=== PATIENT | male | born 1970 | race Two or more races ===

== ENCOUNTER 2017-03-07 20:16 | Emergency (ER) | payer SELFPAY ==
[~2017-03-07] VITALS: Ht 167.6 cm; Wt 68.9 kg
[~2017-03-07 20:16] MED LIST: CEPH500C PO; INDO50CA PO
[2017-03-07 20:33] VITALS: BP 141/80
[2017-03-07] MEDS ORDERED: DOXY100C2 PO (20:57)
--- NOTE | 2017-03-07 20:58 | PHYS DOC ---
Past Medical History Past Medical History: No Pertinent History Past Surgical History: No Surgical History Alcohol Use: Occasionally Drug Use: None Adult General Chief Complaint Chief Complaint: INSECT BITE HPI HPI Patient is a 46 year old [f__sex] who presents with [] Review of Systems Review of Systems Constitutional: Denies fever or chills [] Eyes: Denies change in visual acuity, redness, or eye pain [] HENT: Denies nasal congestion or sore throat [] Respiratory: Denies cough or shortness of breath [] Cardiovascular: No additional information not addressed in HPI [] GI: Denies abdominal pain, nausea, vomiting, bloody stools or diarrhea [] : Denies dysuria or hematuria [] Musculoskeletal: Denies back pain or joint pain [] Integument: Denies rash or skin lesions [] Neurologic: Denies headache, focal weakness or sensory changes [] Endocrine: Denies polyuria or polydipsia [] Allergies Allergies Allergies Coded Allergies Type Severity Reaction Last Updated Verified No Known Drug Allergies 05/18/15 No Physical Exam Physical Exam Physical exam unremarkable except as documented Skin: Right flank, partially embedded tick. There is no surrounding erythema. There is nontender Lymph system: no adenopathy on exam Current Patient Data Vital Signs Vital Signs Date Time Temp Pulse Resp B/P (MAP) Pulse Ox O2 Delivery O2 Flow Rate FiO2 03/07/17 20:33 98.1 77 18 97 Room Air 98.1 EKG EKG [] Radiology/Procedures Radiology/Procedures [] Course & Med Decision Making Course & Med Decision Making Procedure: There are concern cleansed with alcohol, forceps used to remove the remaining tick body. Patient tolerated procedure well. Wound dressed with a Band -Aid. Pertinent Labs and Imaging studies reviewed. (See chart for details) [] Dragon Disclaimer Dragon Disclaimer This electronic medical record was generated, in whole or in part, using a voice recognition dictation system. Departure Departure Impression: Primary Impression: Insect bite Disposition: 01 HOME, SELF-CARE Condition: STABLE Referrals: NO PCP (PCP) Patient Instructions: Wood Tick Bite, [id number] Scripts Doxycycline Hyclate (DOXYCYCLINE HYCLATE) 100 Mg Capsule 1 CAP PO BID for 10 Days, #20 CAP Prov: CISCO EVANS APRN 03/07/17 CISCO EVANS APRN March 07, 2017 20:57
== END 2017-03-07 21:05 | disposition home or self-care (01) ==
LOC: ER 20:16
DX: S30.861A Insect bite (nonvenomous) of abdominal wall, initial encounter (principal); W57.XXXA Bitten or stung by nonvenomous insect and other nonvenomous arthropods, initial encounter; Y93.89 Activity, other specified; Y99.8 Other external cause status; Y92.89 Other specified places as the place of occurrence of the external cause
CPT/HCPCS: 10120; 99284-25

== ENCOUNTER 2018-11-02 15:51 | Emergency (ER) | payer SELFPAY ==
[~2018-11-02] VITALS: Ht 167.6 cm; Wt 60.8 kg
[~2018-11-02 15:51] MED LIST changes: +DOXY100C2 PO; -INDO50CA PO; +INDO50CA5 PO
[2018-11-02 16:00] VITALS: BP 125/76
[2018-11-02] MEDS ORDERED: SULF1TAB24 PO (16:31)
[2018-11-02] MEDS ORDERED: CEPH-263 PO (16:31)
--- NOTE | 2018-11-02 16:31 | PHYS DOC ---
Past Medical History Past Medical History: No Pertinent History Past Surgical History: No Surgical History Alcohol Use: Occasionally Drug Use: None Adult General Chief Complaint Chief Complaint: LOWER EXT PAIN HPI HPI 40-year-old male otherwise healthy presenting to the emergency room with a rash on his right lower leg. His been present for a few weeks. There is mildly painful. The pain is nonradiating intermittent and without alleviating factors. He denies any other symptoms. Review of systems is negative for chest pain shortness of breath fevers or chills. All other review of systems is negative unless otherwise noted in history of present illness. ED course: 40-year-old male presenting with cellulitis. We will initiate the patient on oral Keflex and Bactrim. Follow up with PCP 1-2 days.The patient has been examined and was not found to have an emergency medical condition. The patient was then discharged home in stable condition to follow up with their primary care physician over the next 1-2 days. They were to return if their symptoms worsened or if they were concerned for any reason. They were also instructed to return to the emergency department if they were unable to get the recommended and appropriate follow-up. [id number] discharge instructions and return precautions were given. Patient's questions were answered to their satisfaction. Patient is comfortable with plan. Review of Systems Review of Systems SEE ABOVE. Allergies Allergies Allergies Coded Allergies Type Severity Reaction Last Updated Verified No Known Drug Allergies 05/18/15 No Physical Exam Physical Exam SEE ABOVE Constitutional: Well developed, well nourished, no acute distress, non-toxic appearance. HENT: Normocephalic, atraumatic, bilateral external ears normal, oropharynx moist, no oral exudates, nose normal. [] Eyes: PERRLA, EOMI, conjunctiva normal, no discharge. Neck: Normal range of motion, no tenderness, supple, no stridor. [] Cardiovascular:Heart rate regular rhythm, no murmur Lungs & Thorax: Bilateral breath sounds clear to auscultation [] Abdomen: Bowel sounds normal, soft, no tenderness, no masses, no pulsatile masses. Skin: Warm, dry, . The patient has erythema on the lateral aspect of the leg approximately 4 cm in diameter. There is mild swelling but I do not feel any fluctuance to suggest an abscess. Back: No tenderness, no CVA tenderness. Extremities: No tenderness, no cyanosis, no clubbing, ROM intact, no edema. [] Neurologic: Alert and oriented X 3, normal motor function, normal sensory function, no focal deficits noted. Psychologic: Affect normal, judgement normal, mood normal. [] Current Patient Data Vital Signs Vital Signs Date Time Temp Pulse Resp B/P (MAP) Pulse Ox O2 Delivery O2 Flow Rate FiO2 11/02/18 16:00 98.0 75 16 125/76 (92) 99 Room Air 98.0 EKG EKG [] Radiology/Procedures Radiology/Procedures [] Course & Med Decision Making Course & Med Decision Making Pertinent Labs and Imaging studies reviewed. (See chart for details) [] Dragon Disclaimer Dragon Disclaimer This electronic medical record was generated, in whole or in part, using a voice recognition dictation system. Departure Departure Impression: Primary Impression: Cellulitis of right leg Disposition: HOME, SELF-CARE Condition: STABLE Referrals: NO PCP (PCP) Patient Instructions: Cellulitis Additional Instructions: Thank you for allowing us to participate in your care today. Return to the emergency department you have any new or worsening symptoms, or if you are concerned for any reason. Return to emergency department if you have any new or concerning symptoms including but not limited to fever, chills, nausea, vomiting, intractable pain, any new rashes, chest pain, shortness of air , uncontrolled bleeding, difficulty breathing, and/or vision loss. Follow up with your primary care physician within 1-2 days. Call your Primary Doctor tomorrow and inform them of your visit today. If you do not have a primary care provider we are happy to provide you with a list of our primary care providers contact information. This condition should be evaluated by your primary care physician and any recommended consulting services for continued management within 2 days after discharge. If at any time, you are having difficulty getting into your primary care doctor or a specialist, return to the emergency department. Scripts Cephalexin (KEFLEX) 250 Mg Capsule 1 CAP PO QID, #28 CAP Prov: BOLIVAR HOBBS MD 11/02/18 Sulfamethoxazole/Trimethoprim (BACTRIM DS TABLET) 1 Each Tablet 1 TAB PO BID, #14 TAB Prov: BOLIVAR HOBBS MD 11/02/18 BOLIVAR HOBBS MD Nov 02, 2018 16:31
== END 2018-11-02 17:11 | disposition home or self-care (01) ==
LOC: ER 15:51
DX: L03.115 Cellulitis of right lower limb (principal)
CPT/HCPCS: 99283

== ENCOUNTER 2019-03-05 17:08 | Emergency (ER) | payer SELFPAY ==
[~2019-03-05] VITALS: Ht 167.6 cm; Wt 68.9 kg
[~2019-03-05 17:08] MED LIST changes: +CEPH-263 PO; +SULF1TAB24 PO
[2019-03-05 18:36] LABS: BILIRUBIN,URINE NEGATIVE (NEG); CLARITY,URINE CLEAR; COLOR,URINE YELLOW; NITRITE,URINE NEGATIVE (NEG); PH,URINE 5.5; PROTEIN,URINE NEGATIVE (NEG-TRACE)
--- NOTE | 2019-03-05 18:38 | PHYS DOC ---
Past Medical History Past Medical History: No Pertinent History (NYDIA SYLVESTER APRN) Past Surgical History: No Surgical History (NYDIA SYLVESTER APRN) Alcohol Use: Occasionally Drug Use: None (NYDIA SYLVESTER APRN) Adult General Chief Complaint Chief Complaint: HEADACHE HPI HPI Patient is a 48 year old male who presents with multiple complaints. Patient states that he was running a fever on Monday fever stopped on Monday. Has been having a diffuse headache localized to the L eye. Has also been having bilateral flank pain for several days. Also states that he has been having a burning chest pain. Rates his pain 10/10 and throbbing. Has not tried treatment at home. (NYDIA SYLVESTER APRN) Review of Systems Review of Systems Constitutional: Denies fever or chills [] Eyes: Denies change in visual acuity, redness, or eye pain [] HENT: Denies nasal congestion or sore throat [] Respiratory: Denies cough or shortness of breath [] Cardiovascular: Reports intermittent chest burning, denies palpations or syncope. GI: Reports bilateral flank pain, Denies nausea, vomiting, bloody stools or diarrhea [] : Denies dysuria or hematuria [] Musculoskeletal: Reports bilateral flank pain but denies joint pain [] Integument: Denies rash or skin lesions [] Neurologic: Reports headache denies focal weakness or sensory changes [] Endocrine: Denies polyuria or polydipsia [] Complete systems were reviewed and found to be within normal limits, except as documented in this note. (NYDIA SYLVESTER APRN) Current Medications Current Medications Current Medications Medications (Trade) Dose Ordered Sig/Antonio Start Time Stop Time Status Last Admin Dose Admin Diphenhydramine HCl (Benadryl) 25 mg 1X ONCE 03/05/19 19:00 03/05/19 19:01 DC 03/05/19 19:02 25 MG Ketorolac Tromethamine (Toradol 15mg Vial) 15 mg 1X ONCE 03/05/19 19:00 03/05/19 19:01 DC 03/05/19 19:02 15 MG Prochlorperazine Edisylate (Compazine) 10 mg 1X ONCE 03/05/19 19:00 03/05/19 19:01 DC 03/05/19 19:03 10 MG Sodium Chloride 1,000 ml @ 1,000 mls/hr Q1H 5/14/19 19:00 03/05/19 19:59 DC 03/05/19 19:02 1,000 MLS/HR (LOS BANUELOS MD) Allergies Allergies Allergies Coded Allergies Type Severity Reaction Last Updated Verified No Known Drug Allergies 05/18/15 No (LOS BANUELOS MD) Physical Exam Physical Exam Constitutional: Well developed, well nourished, no acute distress, non-toxic appearance. [] HENT: Normocephalic, atraumatic, bilateral external ears normal, oropharynx moist, no oral exudates, nose normal. [] Eyes: PERRLA, EOMI, conjunctiva normal, no discharge. [] Neck: Normal range of motion, no tenderness, supple, no stridor. [] Cardiovascular:Heart rate regular rhythm, no murmur [] Lungs & Thorax: Bilateral breath sounds clear to auscultation [] Abdomen: normal bowel sounds, soft, no tenderness, no masses, no pulsatile masses. [] Skin: Warm, dry, no erythema, no rash. [] Back: mild bilateral flank tenderness, no CVA tenderness. [] Extremities: No tenderness, no cyanosis, no clubbing, ROM intact, no edema. [] Neurologic: Alert and oriented X 3, normal motor function, normal sensory function, no focal deficits noted. [] Psychologic: Affect normal, judgement normal, mood normal. [] (NYDIA SYLVESTER APRN) Current Patient Data Vital Signs Vital Signs Date Time Temp Pulse Resp B/P (MAP) Pulse Ox O2 Delivery O2 Flow Rate FiO2 03/05/19 19:53 62 97 03/05/19 18:08 98.4 18 144/90 (108) Room Air 98.4 (LOS BANUELOS MD) Lab Values Laboratory Tests Test 03/05/19 18:10 03/05/19 18:40 Urine Collection Type Void Urine Color Yellow Urine Clarity Clear Urine pH 5.5 Urine Specific [place] 1.020 Urine Protein Negative mg/dL (NEG-TRACE) Urine Glucose (UA) Negative mg/dL (NEG) Urine Ketones (Stick) Negative mg/dL (NEG) Urine Blood Large (NEG) Urine Nitrite Negative (NEG) Urine Bilirubin Negative (NEG) Urine Urobilinogen Dipstick 1.0 mg/dL (0.2 mg/dL) Urine Leukocyte Esterase Negative (NEG) Urine RBC 3-5 /HPF (0-2) Urine WBC Rare /HPF (0-4) Urine Squamous Epithelial Cells Few /LPF Urine Bacteria 0 /HPF (0-FEW) Urine Mucus Marked /LPF Urine Opiates Screen Neg (NEG) Urine Methadone Screen Neg (NEG) Urine Barbiturates Neg (NEG) Urine Phencyclidine Screen Neg (NEG) Urine Amphetamine/Methamphetamine Neg (NEG) Urine Benzodiazepines Screen Neg (NEG) Urine Cocaine Screen Neg (NEG) Urine Cannabinoids Screen Neg (NEG) Urine Ethyl Alcohol Neg (NEG) White Blood Count 5.1 x10^3/uL (4.0-11.0) Red Blood Count 5.01 x10^6/uL (4.30-5.70) Hemoglobin 14.9 g/dL (13.0-17.5) Hematocrit 42.4 % (39.0-53.0) Mean Corpuscular Volume 85 fL (79-100) Mean Corpuscular Hemoglobin 30 pg (25-35) Mean Corpuscular Hemoglobin Concent 35 g/dL (31-37) Red Cell Distribution Width 13.4 % (11.5-14.5) Platelet Count 198 x10^3/uL (140-400) Neutrophils (%) (Auto) 39 % (31-73) Lymphocytes (%) (Auto) 39 % (24-48) Monocytes (%) (Auto) 10 % (0-9) H Eosinophils (%) (Auto) 10 % (0-3) H Basophils (%) (Auto) 3 % (0-3) Neutrophils # (Auto) 2.0 x10^3uL (1.8-7.7) Lymphocytes # (Auto) 2.0 x10^3/uL (1.0-4.8) Monocytes # (Auto) 0.5 x10^3/uL (0.0-1.1) Eosinophils # (Auto) 0.5 x10^3/uL (0.0-0.7) Basophils # (Auto) 0.1 x10^3/uL (0.0-0.2) Sodium Level 138 mmol/L (136-145) Potassium Level 3.6 mmol/L (3.5-5.1) Chloride Level 101 mmol/L (98-107) Carbon Dioxide Level 25 mmol/L (21-32) Anion Gap 12 (6-14) Blood Urea Nitrogen 13 mg/dL (8-26) Creatinine 0.8 mg/dL (0.7-1.3) Estimated GFR (Cockcroft-Gault) 103.2 BUN/Creatinine Ratio 16 (6-20) Glucose Level 152 mg/dL (70-99) H Calcium Level 8.8 mg/dL (8.5-10.1) Total Bilirubin 0.6 mg/dL (0.2-1.0) Aspartate Amino Transferase (AST) 27 U/L (15-37) Alanine Aminotransferase (ALT) 53 U/L (16-63) Alkaline Phosphatase 91 U/L (46-116) Troponin I Quantitative < 0.017 ng/mL (0.000-0.055) Total Protein 7.1 g/dL (6.4-8.2) Albumin 3.7 g/dL (3.4-5.0) Albumin/Globulin Ratio 1.1 (1.0-1.7) Lipase 138 U/L (73-393) Laboratory Tests 03/05/19 18:40 Laboratory Tests 03/05/19 18:40 (LOS BANUELOS MD) Lab Values Laboratory Tests Test 03/05/19 18:10 03/05/19 18:40 Urine Collection Type Void Urine Color Yellow Urine Clarity Clear Urine pH 5.5 Urine Specific [place] 1.020 Urine Protein Negative mg/dL (NEG-TRACE) Urine Glucose (UA) Negative mg/dL (NEG) Urine Ketones (Stick) Negative mg/dL (NEG) Urine Blood Large (NEG) Urine Nitrite Negative (NEG) Urine Bilirubin Negative (NEG) Urine Urobilinogen Dipstick 1.0 mg/dL (0.2 mg/dL) Urine Leukocyte Esterase Negative (NEG) Urine RBC 3-5 /HPF (0-2) Urine WBC Rare /HPF (0-4) Urine Squamous Epithelial Cells Few /LPF Urine Bacteria 0 /HPF (0-FEW) Urine Mucus Marked /LPF Urine Opiates Screen Neg (NEG) Urine Methadone Screen Neg (NEG) Urine Barbiturates Neg (NEG) Urine Phencyclidine Screen Neg (NEG) Urine Amphetamine/Methamphetamine Neg (NEG) Urine Benzodiazepines Screen Neg (NEG) Urine Cocaine Screen Neg (NEG) Urine Cannabinoids Screen Neg (NEG) Urine Ethyl Alcohol Neg (NEG) White Blood Count 5.1 x10^3/uL (4.0-11.0) Red Blood Count 5.01 x10^6/uL (4.30-5.70) Hemoglobin 14.9 g/dL (13.0-17.5) Hematocrit 42.4 % (39.0-53.0) Mean Corpuscular Volume 85 fL (79-100) Mean Corpuscular Hemoglobin 30 pg (25-35) Mean Corpuscular Hemoglobin Concent 35 g/dL (31-37) Red Cell Distribution Width 13.4 % (11.5-14.5) Platelet Count 198 x10^3/uL (140-400) Neutrophils (%) (Auto) 39 % (31-73) Lymphocytes (%) (Auto) 39 % (24-48) Monocytes (%) (Auto) 10 % (0-9) H Eosinophils (%) (Auto) 10 % (0-3) H Basophils (%) (Auto) 3 % (0-3) Neutrophils # (Auto) 2.0 x10^3uL (1.8-7.7) Lymphocytes # (Auto) 2.0 x10^3/uL (1.0-4.8) Monocytes # (Auto) 0.5 x10^3/uL (0.0-1.1) Eosinophils # (Auto) 0.5 x10^3/uL (0.0-0.7) Basophils # (Auto) 0.1 x10^3/uL (0.0-0.2) Sodium Level 138 mmol/L (136-145) Potassium Level 3.6 mmol/L (3.5-5.1) Chloride Level 101 mmol/L (98-107) Carbon Dioxide Level 25 mmol/L (21-32) Anion Gap 12 (6-14) Blood Urea Nitrogen 13 mg/dL (8-26) Creatinine 0.8 mg/dL (0.7-1.3) Estimated GFR (Cockcroft-Gault) 103.2 BUN/Creatinine Ratio 16 (6-20) Glucose Level 152 mg/dL (70-99) H Calcium Level 8.8 mg/dL (8.5-10.1) Total Bilirubin 0.6 mg/dL (0.2-1.0) Aspartate Amino Transferase (AST) 27 U/L (15-37) Alanine Aminotransferase (ALT) 53 U/L (16-63) Alkaline Phosphatase 91 U/L (46-116) Troponin I Quantitative < 0.017 ng/mL (0.000-0.055) Total Protein 7.1 g/dL (6.4-8.2) Albumin 3.7 g/dL (3.4-5.0) Albumin/Globulin Ratio 1.1 (1.0-1.7) Lipase 138 U/L (73-393) Laboratory Tests 03/05/19 18:40 Laboratory Tests 03/05/19 18:40 (NYDIA SYLVESTER APRN) EKG EKG [] (NYDIA SYLVESTER APRN) Radiology/Procedures Radiology/Procedures []PATIENT: MICHAEL ANGUIANOCOUNT: [id number]#: [id number] : 1970 LOCATION: ER AGE: 48 SEX: M EXAM STATUS: REG ER ORD. PHYSICIAN: NYDAI SYLVESTER APRN REASON: r/o kidney stone, BILATERAL FLANK PAIN PROCEDURE: CT ABDOMEN PELVIS WO CONTRAST CT scan abdomen and pelvis without contrast 03/05/2019 CLINICAL HISTORY: Bilateral flank pain. TECHNIQUE: Unenhanced, contiguous, 2 mm axial sections were obtained through abdomen and pelvis. One or more of the following individualized dose reduction techniques were utilized for this study: 1. Automated exposure control. 2. Adjustment of the mA and/or kV according to patient size. 3. Use of iterative reconstruction technique. FINDINGS: Images through the lung bases are within normal limits. The liver parenchyma has a decreased attenuation consistent with fatty infiltration. The spleen, pancreas, and adrenal glands are within normal limits. No renal or ureteral calculus is seen. 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 The abdominal aorta tapers normally. The gallbladder is slightly contracted. No free fluid or free air is within the abdomen. There is no evidence of bowel obstruction. The appendix is well-visualized and is within normal limits. Images through the pelvis demonstrate the urinary bladder distended with urine. No free fluid is seen. No distal ureteral calculus is noted. Minimal S-shaped curvature of the thoracolumbar spine is seen. Mild degenerative changes are seen involving the lower thoracic and mid and lower lumbar spine. IMPRESSION: No acute abnormality is seen. Electronically signed by: Reji Townsend MD (03/05/2019 7:27 PM) [facility] Chest X-ray interpreted by Dr. Banuelos No acute abnormalities (NYDIA SYLVESTER APRN) Course & Med Decision Making Course & Med Decision Making Pertinent Labs and Imaging studies reviewed. (See chart for details) Will give headache medication, work up for kidney stone, and do a chest pain workup. Patient is agreeable. Headache has improved with medication. CT scan and Chest x-ray were negative. Labs were unremarkable. (NYDIA SYLVESTER APRN) Course & Med Decision Making Staff Physician Addendum: I was working in the ER during the course of this patient's visit. I was available for consultation as needed, but I was not directly involved in the care of this patient. (LOS BANUELOS MD) Dragon Disclaimer Dragon Disclaimer This electronic medical record was generated, in whole or in part, using a voice recognition dictation system. (NYDIA SYLVESTER APRN) Departure Departure Impression: Primary Impression: Headache Additional Impression: Flank pain Disposition: HOME, SELF-CARE Condition: STABLE Referrals: NO PCP (PCP) Patient Instructions: General Headache Without Cause Additional Instructions: If symptoms worsen come back to ER. Follow up with a primary care doctor in regard to these complaints for further workup and followup. Problem Qualifiers Primary Impression: Headache Headache type: unspecified Headache chronicity pattern: unspecified pattern Intractability: intractable Qualified Codes: R51 - Headache NYDIA SYLVESTER APRN March 05, 2019 18:38 LOS BANUELOS MD March 11, 2019 06:20
[2019-03-05 18:41] LABS: BARBITURATES NEG (NEG); BENZODIAZEPINES NEG (NEG); CANNABINOIDS NEG (NEG); COCAINE NEG (NEG); METHADONE NEG (NEG); OPIATES NEG (NEG); PHENCYCLIDINE NEG (NEG)
[2019-03-05 18:45] LABS: AMPHETAMINE/METHAMPHETAMINE NEG (NEG)
[2019-03-05 18:50] LABS: BASO # 0.1 x10^3/uL (0.0-0.2); BASO % 3 % (0-3); EOS # 0.5 x10^3/uL (0.0-0.7); EOS % 10 % (0-3); HEMATOCRIT 42.4 % (39.0-53.0); HEMOGLOBIN 14.9 g/dL (13.0-17.5); LYMPH % 39 % (24-48); MEAN CORPUSCULAR HEMOGLOBIN 30 pg (25-35); MEAN CORPUSCULAR HGB CONC 35 g/dL (31-37); MEAN CORPUSCULAR VOLUME 85 fL (79-100); MONO # 0.5 x10^3/uL (0.0-1.1); MONO % 10 % (0-9); NEUT % 39 % (31-73); PLATELET COUNT 198 x10^3/uL (140-400); RED BLOOD COUNT 5.01 x10^6/uL (4.30-5.70); RED CELL DISTRIBUTION WIDTH 13.4 % (11.5-14.5); WHITE BLOOD COUNT 5.1 x10^3/uL (4.0-11.0)
[2019-03-05 18:53] LABS: BACTERIA,URINE 0 /HPF (0-FEW); SQUAMOUS EPITHELIAL CELL,UR FEW /LPF; WBC,URINE RARE /HPF (0-4)
[2019-03-05 18:57] LABS: CALCIUM 8.8 mg/dL (8.5-10.1); CREATININE 0.8 mg/dL (0.7-1.3); GFR 103.2; POTASSIUM 3.6 mmol/L (3.5-5.1)
[2019-03-05] MEDS ORDERED: IV NORMAL SALINE 1000ML BAG 1,000 ML IV SCH (19:00)
[2019-03-05] MEDS ORDERED: KETOROLAC 15 MG/ML VIAL. IV ONE (19:00)
[2019-03-05] MEDS ORDERED: PROCHLORPERAZINE 10 MG/2 ML VIAL. IV ONE (19:00)
[2019-03-05] MEDS ORDERED: diphenhydrAMINE 50 MG/ML VIAL IVP ONE (19:00)
[2019-03-05 19:03] LABS: ALBUMIN 3.7 g/dL (3.4-5.0); ALBUMIN/GLOBULIN RATIO 1.1 (1.0-1.7); TOTAL BILIRUBIN 0.6 mg/dL (0.2-1.0); TOTAL PROTEIN 7.1 g/dL (6.4-8.2)
--- NOTE | 2019-03-05 19:31 | RAD ---
CT scan abdomen and pelvis without contrast 03/05/2019 CLINICAL HISTORY: Bilateral flank pain. TECHNIQUE: Unenhanced, contiguous, 2 mm axial sections were obtained through abdomen and pelvis. One or more of the following individualized dose reduction techniques were utilized for this study: 1. Automated exposure control. 2. Adjustment of the mA and/or kV according to patient size. 3. Use of iterative reconstruction technique. FINDINGS: Images through the lung bases are within normal limits. The liver parenchyma has a decreased attenuation consistent with fatty infiltration. The spleen, pancreas, and adrenal glands are within normal limits. No renal or ureteral calculus is seen. 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 The abdominal aorta tapers normally. The gallbladder is slightly contracted. No free fluid or free air is within the abdomen. There is no evidence of bowel obstruction. The appendix is well-visualized and is within normal limits. Images through the pelvis demonstrate the urinary bladder distended with urine. No free fluid is seen. No distal ureteral calculus is noted. Minimal S-shaped curvature of the thoracolumbar spine is seen. Mild degenerative changes are seen involving the lower thoracic and mid and lower lumbar spine. IMPRESSION: No acute abnormality is seen. Electronically signed by: Reji Townsend MD (03/05/2019 7:27 PM) [facility]
[2019-03-05 19:53] VITALS: BP 129/75
--- NOTE | 2019-03-06 00:03 | RAD ---
CHEST PA LATERAL History: Chest pain today. Comparison: None. Findings: The cardiomediastinal silhouette is normal. Pulmonary vasculature is normal. The lungs are clear. No pleural effusion or pneumothorax is seen. There is no acute bone abnormality. IMPRESSION: No acute cardiopulmonary process. Electronically signed by: Julio Cesar Gardiner MD (03/06/2019 12:00 AM) [id number]
--- NOTE | 2019-03-06 06:30 | EKG ---
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
== END 2019-03-05 20:07 | disposition home or self-care (01) ==
LOC: ER 17:08
DX: R51 Headache (principal); R10.9 Unspecified abdominal pain; R50.9 Fever, unspecified
CPT/HCPCS: 36415; 71046; 74176; 80053; 80307; 81001; 83690; 84484; 85025; 93005; 99285; J0780; J1200; J1885; J7030

== ENCOUNTER 2019-04-12 12:32 | Emergency (ER) | payer SELFPAY ==
[~2019-04-12] VITALS: Ht 167.6 cm; Wt 59.9 kg
[2019-04-12] MEDS ORDERED: IV NORMAL SALINE 1000ML BAG 1,000 ML IV SCH (12:58)
[2019-04-12] MEDS ORDERED: fentaNYL PF VIAL 100 MCG/2 ML VIAL IV PRN (13:00)
--- NOTE | 2019-04-12 13:01 | PHYS DOC ---
Past Medical History Past Medical History: No Pertinent History Past Surgical History: No Surgical History Alcohol Use: Occasionally Drug Use: None Adult General Chief Complaint Chief Complaint: FLANK PAIN HPI HPI 48-year-old male presenting the emergency department today with left flank pain that started 2-3 days. He reports sharp shooting pain in his lower left side that radiates around. It is worse when he lifts and when he moves. ros: He denies any abdominal pain. He denies hematuria polyuria dysuria or fevers. All other review of systems is negative. ED course: 48-year-old male presenting with left-sided flank pain. He is given IV fluids nausea and pain medication here in the emergency department. Blood w ork and urinalysis along with CT ordered. Blood work is unremarkable. Urinalysis shows moderate blood in the urine analysis. No signs of infection. CT shows no signs of kidney stone or acute pathology on noncontrast CT. Patient is feeling better on reexamination. We will discharge her to follow-up with his doctor in 1-2 days.The patient has been examined and was not found to have an emergency medical condition. The patient was then discharged home in stable condition to follow up with their primary care physician over the next 1-2 days. They were to return if their symptoms worsened or if they were concerned for any reason. They were also instructed to return to the emergency department if they were unable to get the recommended and appropriate follow-up. [id number] discharge instructions and return precautions were given. Patient's questions were answered to their satisfaction. Patient is comfortable with plan. Current Medications Current Medications Current Medications Medications (Trade) Dose Ordered Sig/[facility] Start Time Stop Time Status Last Admin Dose Admin Fentanyl Citrate (Fentanyl 2ml Vial) 50 mcg PRN Q30MIN PRN 04/12/19 13:00 04/13/19 12:59 04/12/19 13:21 50 MCG Ondansetron HCl (Zofran) 4 mg 1X ONCE 04/12/19 13:30 04/12/19 13:31 DC 04/12/19 13:21 4 MG Sodium Chloride 1,000 ml @ 1,000 mls/hr Q1H 04/12/19 12:58 04/12/19 13:57 04/12/19 13:21 1,000 MLS/HR Allergies Allergies Allergies Coded Allergies Type Severity Reaction Last Updated Verified No Known Drug Allergies 05/18/15 No Physical Exam Physical Exam Constitutional: Well developed, well nourished, no acute distress, non-toxic appearance. [] HENT: Normocephalic, atraumatic, bilateral external ears normal, oropharynx moist, no oral exudates, nose normal. [] Eyes: PERRLA, EOMI, conjunctiva normal, no discharge. [] Neck: Normal range of motion, no tenderness, supple, no stridor. [] Cardiovascular:Heart rate regular rhythm, no murmur [] Lungs & Thorax: Bilateral breath sounds clear to auscultation [] Abdomen: Bowel sounds normal, soft, no tenderness, no masses, no pulsatile masses. [] Skin: Warm, dry, no erythema, no rash. [] Back: mild left cva ttp. no right cva tenderness. Extremities: No tenderness, no cyanosis, no clubbing, ROM intact, no edema. [] Neurologic: Alert and oriented X 3, normal motor function, normal sensory function, no focal deficits noted. [] Psychologic: Affect normal, judgement normal, mood normal. [] Current Patient Data Vital Signs Vital Signs Date Time Temp Pulse Resp B/P (MAP) Pulse Ox O2 Delivery O2 Flow Rate FiO2 04/12/19 13:21 16 97 Room Air 04/12/19 12:44 97.6 69 129/86 (100) 97.6 Lab Values Laboratory Tests Test 04/12/19 12:50 White Blood Count 8.4 x10^3/uL (4.0-11.0) Red Blood Count 4.94 x10^6/uL (4.30-5.70) Hemoglobin 14.7 g/dL (13.0-17.5) Hematocrit 42.0 % (39.0-53.0) Mean Corpuscular Volume 85 fL (79-100) Mean Corpuscular Hemoglobin 30 pg (25-35) Mean Corpuscular Hemoglobin Concent 35 g/dL (31-37) Red Cell Distribution Width 13.2 % (11.5-14.5) Platelet Count 192 x10^3/uL (140-400) Neutrophils (%) (Auto) 61 % (31-73) Lymphocytes (%) (Auto) 27 % (24-48) Monocytes (%) (Auto) 7 % (0-9) Eosinophils (%) (Auto) 4 % (0-3) H Basophils (%) (Auto) 1 % (0-3) Neutrophils # (Auto) 5.2 x10^3uL (1.8-7.7) Lymphocytes # (Auto) 2.3 x10^3/uL (1.0-4.8) Monocytes # (Auto) 0.6 x10^3/uL (0.0-1.1) Eosinophils # (Auto) 0.3 x10^3/uL (0.0-0.7) Basophils # (Auto) 0.1 x10^3/uL (0.0-0.2) Urine Collection Type Unknown Urine Color Yellow Urine Clarity Clear Urine pH 6.0 Urine Specific [place] 1.015 Urine Protein Negative mg/dL (NEG-TRACE) Urine Glucose (UA) Negative mg/dL (NEG) Urine Ketones (Stick) Negative mg/dL (NEG) Urine Blood Moderate (NEG) Urine Nitrite Negative (NEG) Urine Bilirubin Negative (NEG) Urine Urobilinogen Dipstick 0.2 mg/dL (0.2 mg/dL) Urine Leukocyte Esterase Negative (NEG) Urine RBC 11-20 /HPF (0-2) Urine WBC 0 /HPF (0-4) Urine Squamous Epithelial Cells Occ /LPF Urine Bacteria 0 /HPF (0-FEW) Urine Mucus Slight /LPF Sodium Level 139 mmol/L (136-145) Potassium Level 3.8 mmol/L (3.5-5.1) Chloride Level 105 mmol/L (98-107) Carbon Dioxide Level 24 mmol/L (21-32) Anion Gap 10 (6-14) Blood Urea Nitrogen 12 mg/dL (8-26) Creatinine 0.8 mg/dL (0.7-1.3) Estimated GFR (Cockcroft-Gault) 103.2 Glucose Level 124 mg/dL (70-99) H Calcium Level 8.4 mg/dL (8.5-10.1) L Total Bilirubin 0.6 mg/dL (0.2-1.0) Direct Bilirubin 0.1 mg/dL (0.0-0.2) Aspartate Amino Transferase (AST) 15 U/L (15-37) Alanine Aminotransferase (ALT) 24 U/L (16-63) Alkaline Phosphatase 86 U/L (46-116) Total Protein 7.3 g/dL (6.4-8.2) Albumin 3.6 g/dL (3.4-5.0) Lipase 197 U/L (73-393) Laboratory Tests 04/12/19 12:50 Laboratory Tests 04/12/19 12:50 EKG EKG [] Radiology/Procedures Radiology/Procedures [] Course & Med Decision Making Course & Med Decision Making Pertinent Labs and Imaging studies reviewed. (See chart for details) [] Dragon Disclaimer Dragon Disclaimer This electronic medical record was generated, in whole or in part, using a voice recognition dictation system. Departure Departure Impression: Primary Impression: Flank pain Disposition: HOME, SELF-CARE Condition: STABLE Referrals: NO PCP (PCP) Patient Instructions: Flank Pain, [id number] Additional Instructions: Thank you for allowing us to participate in your care today. Return to the emergency department you have any new or worsening symptoms, or if you are concerned for any reason. Return to emergency department if you have any new or concerning symptoms including but not limited to fever, chills, nausea, vomiting, intractable pain, any new rashes, chest pain, shortness of air, uncontrolled bleeding, difficulty breathing, and/or vision loss. Follow up with your primary care physician within 1-2 days. Call your Primary Doctor tomorrow and inform them of your visit today. If you do not have a primary care provider we are happy to provide you with a list of our primary care providers contact information. This condition should be evaluated by your primary care physician and any recommended consulting services for continued management within 2 days after discharge. If at any time, you are having difficulty getting into your primary care doctor or a specialist, return to the emergency department. Scripts Hydrocodone Bit/Acetaminophen (HYDROCODONE-APAP 5-325 ) 1 Tab Tablet 1 TAB PO PRN Q8HRS PRN for SEVERE PAIN, #8 TAB 0 Refills Prov: BOLIVAR HOBBS MD 04/12/19 BOLIVAR HOBBS MD Apr 12, 2019 13:01
[2019-04-12 13:05] LABS: BASO # 0.1 x10^3/uL (0.0-0.2); BASO % 1 % (0-3); EOS # 0.3 x10^3/uL (0.0-0.7); EOS % 4 % (0-3); HEMOGLOBIN 14.7 g/dL (13.0-17.5); LYMPH # 2.3 x10^3/uL (1.0-4.8); LYMPH % 27 % (24-48); MEAN CORPUSCULAR HEMOGLOBIN 30 pg (25-35); MEAN CORPUSCULAR HGB CONC 35 g/dL (31-37); MEAN CORPUSCULAR VOLUME 85 fL (79-100); MONO # 0.6 x10^3/uL (0.0-1.1); MONO % 7 % (0-9); NEUT # 5.2 x10^3uL (1.8-7.7); NEUT % 61 % (31-73); PLATELET COUNT 192 x10^3/uL (140-400); RED BLOOD COUNT 4.94 x10^6/uL (4.30-5.70); RED CELL DISTRIBUTION WIDTH 13.2 % (11.5-14.5); WHITE BLOOD COUNT 8.4 x10^3/uL (4.0-11.0)
[2019-04-12 13:07] LABS: BILIRUBIN,URINE NEGATIVE (NEG); CLARITY,URINE CLEAR; COLOR,URINE YELLOW; NITRITE,URINE NEGATIVE (NEG); PROTEIN,URINE NEGATIVE (NEG-TRACE); UROBILINOGEN,URINE 0.2 mg/dL (0.2 mg/dL)
[2019-04-12 13:12] LABS: CALCIUM 8.4 mg/dL (8.5-10.1); CREATININE 0.8 mg/dL (0.7-1.3); GFR 103.2; POTASSIUM 3.8 mmol/L (3.5-5.1)
[2019-04-12 13:17] LABS: BACTERIA,URINE 0 /HPF (0-FEW); SQUAMOUS EPITHELIAL CELL,UR OCC /LPF; WBC,URINE 0 /HPF (0-4)
[2019-04-12 13:18] LABS: ALBUMIN 3.6 g/dL (3.4-5.0); DIRECT BILIRUBIN 0.1 mg/dL (0.0-0.2); TOTAL BILIRUBIN 0.6 mg/dL (0.2-1.0); TOTAL PROTEIN 7.3 g/dL (6.4-8.2)
[2019-04-12] MEDS ORDERED: ONDANSETRON PF 4 MG/2 ML VIAL. IV ONE (13:30)
--- NOTE | 2019-04-12 13:40 | RAD ---
CT ABDOMEN PELVIS WO CONTRAST Indication: Left flank pain. Exposure: One or more of the following individualized dose reduction techniques were utilized for this examination: 1. Automated exposure control 2. Adjustment of the mA and/or kV according to patient size 3. Use of iterative reconstruction technique. Comparison: March 05, 2019. Technique: No intravenous contrast given. No oral contrast per request. Findings: Evaluation of solid viscera, bowel and vasculature is compromised by the noncontrast technique. Lung bases are clear. Liver and spleen are not enlarged. Pancreas is unremarkable. No evidence of adrenal mass. No evidence of urolithiasis or hydronephrosis. No evidence of calcified gallstone. The aorta is nonaneurysmal. No significant lymph node enlargement. Question mild wall thickening of the distal esophagus. No significant small bowel distention. Mild colonic diverticulosis. No evidence of acute colitis. The appendix appears normal. No evidence of ascites or pneumoperitoneum. Prostate gland measures 4.7 cm wide. Unopacified urinary bladder appears grossly unremarkable. Mild degenerative spondylosis. Vertebral body height and alignment are intact. No aggressive bone destruction. IMPRESSION: No evidence of urolithiasis or obstructive uropathy. No acute findings on noncontrast exam. Electronically signed by: Curtis Gu MD (04/12/2019 1:38 PM) [id number]
[2019-04-12 13:49] VITALS: BP 145/63
[2019-04-12] MEDS ORDERED: HYDR-2761 PO (13:56)
== END 2019-04-12 14:03 | disposition home or self-care (01) ==
LOC: ER 12:32
DX: R10.9 Unspecified abdominal pain (principal); R31.9 Hematuria, unspecified; M54.9 Dorsalgia, unspecified; R11.0 Nausea
CPT/HCPCS: 36415; 74176; 80048; 80076; 81001; 83690; 85025; 96374; 96375; 99285; J2405; J3010; J7030

== ENCOUNTER 2020-08-31 16:49 | Emergency (ER) | payer SELFPAY ==
[~2020-08-31] VITALS: Ht 167.6 cm; Wt 68.0 kg
[~2020-08-31 16:49] MED LIST changes: +HYDR-2761 PO; +INDO50CA15 PO; -INDO50CA5 PO
[2020-08-31] MEDS ORDERED: FAMOTIDINE 20 MG/2 ML VIAL IVP ONE (17:30)
[2020-08-31] MEDS ORDERED: IV NORMAL SALINE 1000ML BAG 1,000 ML IV ONE (17:30)
[2020-08-31 17:33] LABS: BASO # 0.2 x10^3/uL (0.0-0.2); BASO % 3 % (0-3); EOS # 0.3 x10^3/uL (0.0-0.7); EOS % 5 % (0-3); HEMATOCRIT 43.1 % (39.0-53.0); HEMOGLOBIN 15.2 g/dL (13.0-17.5); LYMPH # 2.2 x10^3/uL (1.0-4.8); LYMPH % 38 % (24-48); MEAN CORPUSCULAR HEMOGLOBIN 30 pg (25-35); MEAN CORPUSCULAR HGB CONC 35 g/dL (31-37); MEAN CORPUSCULAR VOLUME 85 fL (79-100); MONO # 0.4 x10^3/uL (0.0-1.1); MONO % 6 % (0-9); NEUT # 2.8 x10^3/uL (1.8-7.7); NEUT % 49 % (31-73); PLATELET COUNT 229 x10^3/uL (140-400); RED CELL DISTRIBUTION WIDTH 13.6 % (11.5-14.5); WHITE BLOOD COUNT 5.8 x10^3/uL (4.0-11.0)
[2020-08-31 17:48] LABS: BILIRUBIN,URINE NEGATIVE (NEG); CLARITY,URINE TURBID; COLOR,URINE YELLOW; NITRITE,URINE NEGATIVE (NEG); PH,URINE 8.5 (<5.0-8.0); PROTEIN,URINE NEGATIVE (NEG-TRACE); UROBILINOGEN,URINE 0.2 mg/dL (0.2 mg/dL)
[2020-08-31 17:51] LABS: CREATININE 0.8 mg/dL (0.7-1.3); GFR 102.3; POTASSIUM 3.5 mmol/L (3.5-5.1)
[2020-08-31 17:54] LABS: ALBUMIN/GLOBULIN RATIO 1.2 (1.0-1.7); MAGNESIUM 2.6 mg/dL (1.8-2.4); TOTAL PROTEIN 7.4 g/dL (6.4-8.2)
[2020-08-31] MEDS ORDERED: IOHEXOL 300 MG/ML 100ML VIAL. IV ONE (18:00)
[2020-08-31] MEDS ORDERED: CONTRAST GIVEN. MC PRN (18:00)
[2020-08-31 18:02] LABS: BARBITURATES NEG (NEG); BENZODIAZEPINES NEG (NEG); CANNABINOIDS NEG (NEG); COCAINE NEG (NEG); METHADONE NEG (NEG); OPIATES NEG (NEG); PHENCYCLIDINE NEG (NEG)
[2020-08-31 18:03] LABS: AMORPHOUS SEDIMENT,UR PRESENT /HPF; BACTERIA,URINE 0 /HPF (0-FEW); RBC,URINE 0 /HPF (0-2); WBC,URINE 0 /HPF (0-4)
[2020-08-31 18:06] LABS: AMPHETAMINE/METHAMPHETAMINE NEG (NEG)
--- NOTE | 2020-08-31 18:34 | RAD ---
EXAM: CT head without contrast INDICATION: Headache for long time COMPARISON: None available TECHNIQUE: Axial CT imaging through the head without intravenous contrast. One or more of the following individualized dose reduction techniques were utilized for this examination: 1. Automated exposure control 2. Adjustment of the mA and/or kV according to patient size 3. Use of iterative reconstruction technique. FINDINGS: The ventricles and sulci are normal. Pulido-white matter differentiation is maintained. There is no intracranial hemorrhage, acute infarct, or mass lesion. Basal cisterns are clear. The skull and scalp are intact. Minimal scattered mucosal thickening in the paranasal sinuses. Mastoid air cells are clear. Globes and orbits are intact. IMPRESSION: No acute intracranial abnormality. Electronically signed by: Viridiana Valdez MD (08/31/2020 6:31 PM) [id number]
--- NOTE | 2020-08-31 18:38 | RAD ---
Exam: CT abdomen/pelvis with intravenous contrast Indication: Epigastric and left abdominal pain for one day. Constipation for 3 weeks. Comparison: CT abdomen pelvis 08/31/2020 Technique: Helical CT imaging performed of the abdomen and pelvis after the intravenous administration of 75 mL Omnipaque 300 intravenous contrast. Sagittal and coronal reformats were obtained. One or more of the following individualized dose reduction techniques were utilized for this examination: 1. Automated exposure control 2. Adjustment of the mA and/or kV according to patient size 3. Use of iterative reconstruction technique. Findings: Lower chest: The lung bases are clear. The heart is normal in size. Liver: Normal. Gallbladder/Biliary Tree: Normal. Pancreas: Normal. Spleen: Normal. Adrenal Glands: Normal. Kidneys/Ureters/Bladder: The kidneys, ureters, and bladder are normal. Reproductive Organs: Prostate gland is normal. Stomach, small bowel, and colon: Stomach, small bowel, and appendix are normal. There is mild sigmoid diverticulosis. Vasculature: Abdominal aorta and inferior vena cava are normal. Lymph Nodes: No lymphadenopathy. Peritoneum and retroperitoneum: No free fluid or free air. Bones: No acute osseous abnormality. Impression: 1. No acute intra-abdominal/pelvic abnormality. 2. Mild sigmoid diverticulosis. Electronically signed by: Viridiana Valdez MD (08/31/2020 6:35 PM) [id number]
--- NOTE | 2020-08-31 18:55 | RAD ---
EXAM: PORTABLE CHEST 1V 08/31/2020 5:08 PM CLINICAL INDICATION: Headache, left-sided abdominal pain for 3 weeks COMPARISON: Chest radiograph 03/05/2019 TECHNIQUE: AP upright view of the chest FINDINGS: The heart and mediastinum are normal. Lungs are well-expanded and clear. No consolidation, pleural effusion, or pneumothorax. Pulmonary vascularity is normal. The thoracic skeleton is intact. IMPRESSION: Normal chest radiograph. Electronically signed by: Viridiana Valdez MD (08/31/2020 6:52 PM) [id number]
[2020-08-31] MEDS ORDERED: LIDO:MAALOX 1:1 20 ML SINGLE DOSE. SWSW ONE (19:45)
[2020-08-31] MEDS ORDERED: MAGNESIUM CITRATE 296 ML SOLUTION. PO ONE (19:45)
[2020-08-31] MEDS ORDERED: POLY17PO29 PO (20:16)
--- NOTE | 2020-08-31 20:16 | PHYS DOC ---
Past Medical History Past Medical History: No Pertinent History, GERD (ANGELES EUGENE APRN) Past Surgical History: No Surgical History (ANGELES EUGENE APRN) Smoking Status: Former Smoker Alcohol Use: Occasionally Drug Use: None (ANGELES EUGENE APRN) General Adult EDM: Chief Complaint: ABDOMINAL PAIN HPI: HPI: Patient is a 50 year old male patient with history of acid reflux presenting to the ED today complaining of epigastric pain as well as left upper quadrant a bdominal pain rated at 5 out of 10, symptoms for 3-1/2 weeks. Denies anything exacerbating or relieving the pain. He states he feels constipated. He states he is having small amount of pebble-sized stools in the last 2 days. Denies any diarrhea. Denies any nausea vomiting. Denies any chest pain or shortness of breath. He is also complaining of a mild generalized headache intermittently for 3 days. Denies any other associated symptoms with this headache. (ANGELES EUGENE APRN) Review of Systems: Review of Systems: Constitutional: Denies fever or chills. [] Eyes: Denies change in visual acuity. [] HENT: Denies nasal congestion or sore throat. [] Respiratory: Denies cough or shortness of breath. [] Cardiovascular: Denies chest pain or edema. [] GI: Reports left upper quadrant abdominal pain, epigastric pain, constipation, denies nausea, vomiting, bloody stools or diarrhea. [] : Denies dysuria. [] Musculoskeletal: Denies back pain or joint pain. [] Integument: Denies rash. [] Neurologic: Denies headache, focal weakness or sensory changes. [] Psychiatric: Denies depression or anxiety. [] (ANGELES EUGENE APRN) Heart Score: Risk Factors: Risk Factors: DM, Current or recent (<one month) smoker, HTN, HLP, family history of CAD, obesity. Risk Scores: Score 0 - 3: 2.5% MACE over next 6 weeks - Discharge Home Score 4 - 6: 20.3% MACE over next 6 weeks - Admit for Clinical Observation Score 7 - 10: 72.7% MACE over next 6 weeks - Early Invasive Strategies (ANGELES EUGENE APRN) Current Medications: Current Medications Medications (Trade) Dose Ordered Sig/Antonio Start Time Stop Time Status Last Admin Dose Admin Famotidine (Pepcid Vial) 20 mg 1X ONCE 08/31/20 17:30 08/31/20 17:31 DC 08/31/20 17:36 20 MG Info (CONTRAST GIVEN -- Rx MONITORING) 1 each PRN DAILY PRN 08/31/20 18:00 09/02/20 17:59 Iohexol (Omnipaque 300 Mg/ml) 75 ml 1X ONCE 08/31/20 18:00 08/31/20 18:01 DC 08/31/20 18:13 75 ML Magnesium Citrate (Citroma) 296 ml 1X ONCE 08/31/20 19:45 08/31/20 19:46 DC 08/31/20 19:50 296 ML Multi-Ingredient Mouthwash/Gargle (Gi Cocktail) 20 ml 1X ONCE 08/31/20 19:45 08/31/20 19:46 DC 08/31/20 19:50 20 ML Sodium Chloride 1,000 ml @ 1,000 mls/hr 1X ONCE 08/31/20 17:30 08/31/20 18:29 DC 08/31/20 17:36 1,000 MLS/HR (MUTUNGA,ANGELES [employer]URF SALES PERSON) Allergies: Allergies: Allergies Coded Allergies Type Severity Reaction Last Updated Verified No Known Drug Allergies 05/18/15 No (MUTUNGA,ANGELES TURF SALES PERSON) Physical Exam: PE: Constitutional: Well developed, well nourished, no acute distress, non-toxic appearance. [] HENT: Normocephalic, atraumatic, bilateral external ears normal, oropharynx moist, no oral exudates, nose normal. [] Eyes: PERRLA, EOMI, conjunctiva normal, no discharge. [] Neck: Normal range of motion, no tenderness, supple, no stridor. [] Cardiovascular:Heart rate regular rhythm, no murmur [] Lungs & Thorax: Bilateral breath sounds clear to auscultation [] Abdomen: Bowel sounds normal, soft, no tenderness, no masses, no pulsatile masses. [] Skin: Warm, dry, no erythema, no rash. [] Back: No tenderness, no CVA tenderness. [] Extremities: No tenderness, no cyanosis, no clubbing, ROM intact, no edema. [] Neurologic: Alert and oriented X 3, normal motor function, normal sensory function, no focal deficits noted. [] Psychologic: Affect normal, judgement normal, mood normal. [] (JABIERANGELES APRN) Current Patient Data: Labs: Laboratory Tests Test 08/31/20 17:23 08/31/20 17:30 White Blood Count 5.8 x10^3/uL (4.0-11.0) Red Blood Count 5.10 x10^6/uL (4.30-5.70) Hemoglobin 15.2 g/dL (13.0-17.5) Hematocrit 43.1 % (39.0-53.0) Mean Corpuscular Volume 85 fL (79-100) Mean Corpuscular Hemoglobin 30 pg (25-35) Mean Corpuscular Hemoglobin Concent 35 g/dL (31-37) Red Cell Distribution Width 13.6 % (11.5-14.5) Platelet Count 229 x10^3/uL (140-400) Neutrophils (%) (Auto) 49 % (31-73) Lymphocytes (%) (Auto) 38 % (24-48) Monocytes (%) (Auto) 6 % (0-9) Eosinophils (%) (Auto) 5 % (0-3) H Basophils (%) (Auto) 3 % (0-3) Neutrophils # (Auto) 2.8 x10^3/uL (1.8-7.7) Lymphocytes # (Auto) 2.2 x10^3/uL (1.0-4.8) Monocytes # (Auto) 0.4 x10^3/uL (0.0-1.1) Eosinophils # (Auto) 0.3 x10^3/uL (0.0-0.7) Basophils # (Auto) 0.2 x10^3/uL (0.0-0.2) Sodium Level 142 mmol/L (136-145) Potassium Level 3.5 mmol/L (3.5-5.1) Chloride Level 103 mmol/L (98-107) Carbon Dioxide Level 26 mmol/L (21-32) Anion Gap 13 (6-14) Blood Urea Nitrogen 15 mg/dL (8-26) Creatinine 0.8 mg/dL (0.7-1.3) Estimated GFR (Cockcroft-Gault) 102.3 BUN/Creatinine Ratio 19 (6-20) Glucose Level 150 mg/dL (70-99) H Calcium Level 9.0 mg/dL (8.5-10.1) Magnesium Level 2.6 mg/dL (1.8-2.4) H Total Bilirubin 1.0 mg/dL (0.2-1.0) Aspartate Amino Transferase (AST) 24 U/L (15-37) Alanine Aminotransferase (ALT) 44 U/L (16-63) Alkaline Phosphatase 87 U/L (46-116) Troponin I Quantitative < 0.017 ng/mL (0.000-0.055) PY-Sij-P-Type Natriuretic Peptide 12 pg/mL (0-124) Total Protein 7.4 g/dL (6.4-8.2) Albumin 4.0 g/dL (3.4-5.0) Albumin/Globulin Ratio 1.2 (1.0-1.7) Lipase 140 U/L (73-393) Thyroid Stimulating Hormone (TSH) 1.729 uIU/mL (0.358-3.74) Urine Collection Type Unknown Urine Color Yellow Urine Clarity Turbid Urine pH 8.5 (<5.0-8.0) Urine Specific [place] 1.015 (1.000-1.030) Urine Protein Negative mg/dL (NEG-TRACE) Urine Glucose (UA) Negative mg/dL (NEG) Urine Ketones (Stick) Negative mg/dL (NEG) Urine Blood Moderate (NEG) Urine Nitrite Negative (NEG) Urine Bilirubin Negative (NEG) Urine Urobilinogen Dipstick 0.2 mg/dL (0.2 mg/dL) Urine Leukocyte Esterase Negative (NEG) Urine RBC 0 /HPF (0-2) Urine WBC 0 /HPF (0-4) Urine Amorphous Sediment Present /HPF Urine Bacteria 0 /HPF (0-FEW) Urine Opiates Screen Neg (NEG) Urine Methadone Screen Neg (NEG) Urine Barbiturates Neg (NEG) Urine Phencyclidine Screen Neg (NEG) Urine Amphetamine/Methamphetamine Neg (NEG) Urine Benzodiazepines Screen Neg (NEG) Urine Cocaine Screen Neg (NEG) Urine Cannabinoids Screen Neg (NEG) Urine Ethyl Alcohol Neg (NEG) Laboratory Tests 08/31/20 17:23 Laboratory Tests 08/31/20 17:23 Vital Signs: Vital Signs Date Time Temp Pulse Resp B/P (MAP) Pulse Ox O2 Delivery O2 Flow Rate FiO2 08/31/20 18:00 73 144/84 (104) 98 08/31/20 17:05 98.5 16 Room Air 98.5 (ANGELES EUGENE [employer] SALES PERSON) EKG: EK interpreted by Dr. Heart, sinus rhythm heart rate 74 no STEMI [] (ANGELES EUGENE APRN) Radiology/Procedures: Radiology/Procedures: []PROCEDURE: CT ABD PELV W/ IV CONTRST ONLY Exam: CT abdomen/pelvis with intravenous contrast Indication: Epigastric and left abdominal pain for one day. Constipation for 3 weeks. Comparison: CT abdomen pelvis 08/31/2020 Technique: Helical CT imaging performed of the abdomen and pelvis after the intravenous administration of 75 mL Omnipaque 300 intravenous contrast. Sagittal and coronal reformats were obtained. One or more of the following individualized dose reduction techniques were utilized for this examination: 1. Automated exposure control 2. Adjustment of the mA and/or kV according to patient size 3. Use of iterative reconstruction technique. Findings: Lower chest: The lung bases are clear. The heart is normal in size. Liver: Normal. Gallbladder/Biliary Tree: Normal. Pancreas: Normal. Spleen: Normal. Adrenal Glands: Normal. Kidneys/Ureters/Bladder: The kidneys, ureters, and bladder are normal. Reproductive Organs: Prostate gland is normal. Stomach, small bowel, and colon: Stomach, small bowel, and appendix are normal. There is mild sigmoid diverticulosis. Vasculature: Abdominal aorta and inferior vena cava are normal. Lymph Nodes: No lymphadenopathy. Peritoneum and retroperitoneum: No free fluid or free air. Bones: No acute osseous abnormality. Impression: 1. No acute intra-abdominal/pelvic abnormality. 2. Mild sigmoid diverticulosis. Electronically signed by: Viridiana Valdez MD (08/31/2020 6:35 PM) [id number] DICTATED and SIGNED BY: VIRIDIANA VALDEZ MD DATE: 08/31/20 1835 PROCEDURE: PORTABLE CHEST 1V EXAM: PORTABLE CHEST 1V 08/31/2020 5:08 PM CLINICAL INDICATION: Headache, left-sided abdominal pain for 3 weeks COMPARISON: Chest radiograph 03/05/2019 TECHNIQUE: AP upright view of the chest FINDINGS: The heart and mediastinum are normal. Lungs are well-expanded and clear. No consolidation, pleural effusion, or pneumothorax. Pulmonary vascularity is normal. The thoracic skeleton is intact. IMPRESSION: Normal chest radiograph. Electronically signed by: Viridiana Valdez MD (08/31/2020 6:52 PM) [id number] DICTATED and SIGNED BY: VIRIDIANA VALDEZ MD DATE: 08/31/201851 PROCEDURE: CT HEAD WO CONTRAST EXAM: CT head without contrast INDICATION: Headache for long time COMPARISON: None available TECHNIQUE: Axial CT imaging through the head without intravenous contrast. One or more of the following individualized dose reduction techniques were utilized for this examination: 1. Automated exposure control 2. Adjustment of the mA and/or kV according to patient size 3. Use of iterative reconstruction technique. FINDINGS: The ventricles and sulci are normal. Pulido-white matter differentiation is maintained. There is no intracranial hemorrhage, acute infarct, or mass lesion. Basal cisterns are clear. The skull and scalp are intact. Minimal scattered mucosal thickening in the paranasal sinuses. Mastoid air cells are clear. Globes and orbits are intact. IMPRESSION: No acute intracranial abnormality. Electronically signed by: Viridiana Valdez MD (08/31/2020 6:31 PM) [id number] DICTATED and SIGNED BY: VIRIDIANA VALDEZ MD DATE: 08/31/201830 (ANGELES EUGENE APRN) Course & Med Decision Making: Course & Med Decision Making Pertinent Labs and Imaging studies reviewed. (See chart for details) This is a 50-year-old male patient presenting to the ED today complaining of left upper quadrant abdominal pain, epigastric pain, symptoms for 3-1/2 weeks. Patient also complaining of constipation. Patient is also complaining of a headache for [address] of the head is negative for any acute findings, chest x-ray is negative, CT of the abdomen pelvis is negative for any acute findings, noted for diverticulosis. Labs are negative for any acute findings. Patient was given mag citrate for his constipation and discharged to home. We talked about management of constipation as well as management of acid reflux. Follow-up with his own doctor in the next 7 days (ANGELES EUGENE APRN) Dragon Disclaimer: Draggerber Disclaimer: This electronic medical record was generated, in whole or in part, using a voice recognition dictation system. (ANGELES EUGENE APRN) Departure Departure Impression: Primary Impression: Left upper quadrant pain Additional Impression: Constipation Qualified Codes: K59.00 - Constipation, unspecified Disposition: 01 DC HOME SELF CARE/HOMELESS Condition: STABLE Referrals: NO PCP (PCP) follow up in one week MERCEDES TIJERINA MD follow up in one week Patient Instructions: Abdominal Pain (Nonspecific), Constipation, Adult Additional Instructions: You were evaluated in the emergency room, your CAT scan of the head, abdomen and pelvis are negative for any acute findings. Your chest x-ray is negative. Your labs are negative for any acute findings. Blood pressures running slightly high consider following up with your primary care doctor. Increase your dietary fiber intake as well as water intake, take MiraLAX every day to prevent cons tipation. Follow-up with your doctor in the next 7 days. Scripts Polyethylene Glycol 3350 (MIRALAX) 17 Gm Powd.pack 1 PACKET PO DAILY for constipation for 2 Days, #2 PACKET 0 Refills dissolve in water Prov: ANGELES EUGENE APRN 08/31/20 Attending Signature Attending Signature I have reviewed the PA/HOCKEY SCOUT's note and plan of care. I was available for consultation as needed during the patient's visit in the emergency department. I agree with the clinical impression, plan, and disposition. (NYDIA HEART DO) ANGELES EUGENE APRN Aug 31, 2020 20:16 NYDIA HEART DO Sep 01, 2020 06:33
[2020-08-31 20:20] VITALS: BP 148/100
--- NOTE | 2020-09-02 10:58 | EKG ---
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
== END 2020-08-31 20:20 | disposition home or self-care (01) ==
LOC: ER 16:49
DX: K59.00 Constipation, unspecified (principal); R10.12 Left upper quadrant pain; R51.9 Headache, unspecified; K21.9 Gastro-esophageal reflux disease without esophagitis; Z87.891 Personal history of nicotine dependence
CPT/HCPCS: 36415; 70450; 71045; 74177; 80053; 80307; 81001; 83690; 83735; 83880; 84443; 84484; 85025; 96361; 96374; 99285; J3490; J7030; Q9967; 93005

== ENCOUNTER 2021-05-05 01:03 | Emergency (ER) | payer SELFPAY ==
[~2021-05-05] VITALS: Ht 167.6 cm; Wt 69.1 kg
[~2021-05-05 01:03] MED LIST changes: +POLY17PO29 PO
[2021-05-05] MEDS ORDERED: ASPIRIN CHEWABLE 81 MG TABLET. PO ONE (01:15)
--- NOTE | 2021-05-05 01:33 | PHYS DOC ---
Past Medical History Past Medical History: No Pertinent History, GERD Past Surgical History: No Surgical History Smoking Status: Former Smoker Alcohol Use: Occasionally Drug Use: None General Adult EDM: Chief Complaint: CHEST PAIN HPI: HPI: Patient is a 50 year old male no past medical history presents with a chief complaint of chest pain. Patient states chest pain woke him from his sleep approximately 25 minutes prior to arrival. Patient states pain was right-sided and radiated to his back. Patient describes the pain as a stabbing type pain and rated it a 10 out of a 10. Patient states he had associated nausea with some mild shortness of breath. Patient states shortly after being placed into the room he vomited in his chest pain completely resolved. Review of Systems: Review of Systems: Review of systems: Constitutional symptoms- No fever, no chills. Eyes- No Discharge, No Visual Loss Respiratory symptoms- Positive shortness of breath, No wheezing, No Dyspnea on Exertion Cardiovascular Systems; Positive chest pain, No Palpitations, No syncope Gastrointestinal symptoms: NO abdominal pain, Positive nausea, Positive vomiting or diarrhea. Genitourinary symptoms: No dysuria. Musculoskeletal symptoms: No back pain No extremity pain. NEUROLOGICAL Symptoms: No headache, no generalized weakness; No focal Weakness Skin: No rash. Heart Score: C/O Chest Pain: Yes HEART Score for Chest Pain: HEART Score for Chest Pain Response (Comments) Value History Slighlty/Non-Suspicious 0 ECG Normal 0 Age >45 - < 65 1 Risk Factors No Risk Factors 0 Troponin < Normal Limit 0 Total 1 Risk Factors: Risk Factors: DM, Current or recent (<one month) smoker, HTN, HLP, family histo ry of CAD, obesity. Risk Scores: Score 0 - 3: 2.5% MACE over next 6 weeks - Discharge Home Score 4 - 6: 20.3% MACE over next 6 weeks - Admit for Clinical Observation Score 7 - 10: 72.7% MACE over next 6 weeks - Early Invasive Strategies Current Medications: Current Medications Medications (Trade) Dose Ordered Sig/Antonio Start Time Stop Time Status Last Admin Dose Admin Aspirin (Aspirin Chewable) 324 mg 1X ONCE 05/05/21 01:15 05/05/21 01:17 DC Allergies: Allergies: Allergies Coded Allergies Type Severity Reaction Last Updated Verified No Known Drug Allergies 05/18/15 No Physical Exam: PE: General: alert, no acute distress. Skin: warm, dry and intact. HENT: bilateral external ears normal, oropharynx moist, nose normal. Head:: Normocephalic, atraumatic. Neck: Trachea midline. Eyes: EOMI, Normal conjunctiva, No drainage CARDIOVASCULAR: Regular rate and rhythm RESPIRATORY: No respiratory distress Back: Full range of motion. Skin: Warm, dry, no erythema, no rash. MUSCULOSKELETAL: Full range of motion of bilateral upper and lower extremities. GASTROINTESTINAL: Abdomen soft without rebound or guarding. NEUROLOGICAL: Alert and noted to person, place and time. No neurological deficits observed Psychiatric: Cooperative. Normal judgment EKG: EKG: Performed at 0109 Rate [address] elevation No ST depression No acute ID [] Radiology/Procedures: Radiology/Procedures: [] Impression: Chest x-ray no acute abnormality Course & Med Decision Making: Course & Med Decision Making Pertinent Labs and Imaging studies reviewed. (See chart for details) [] Patient was evaluated for chief complaint. Work-up consisted of laboratory analysis and radiologic imaging. Results reviewed and discussed with patient. Patient's EKG within normal limits troponin x2 -. Chest x-ray no focal infiltrate. Patient's chest pain completely resolved. Patient's pain did not return. Patient heart score of 1. Patient discharged home with instructions to follow-up with primary care physician. Corby Disclaimer: Corby Disclaimer: This electronic medical record was generated, in whole or in part, using a voice recognition dictation system. Departure Departure Impression: Primary Impression: Chest pain Disposition: HOME / SELF CARE / HOMELESS Condition: STABLE Referrals: NO PCP (PCP) Patient Instructions: Chest Pain (Nonspecific) BERNARDA MEEKS DO May 05, 2021 01:33
[2021-05-05 02:17] LABS: BASO # 0.1 x10^3/uL (0.0-0.2); BASO % 2 % (0-3); EOS # 0.4 x10^3/uL (0.0-0.7); EOS % 7 % (0-3); HEMATOCRIT 43.4 % (39.0-53.0); HEMOGLOBIN 15.1 g/dL (13.0-17.5); LYMPH # 2.3 x10^3/uL (1.0-4.8); LYMPH % 41 % (24-48); MEAN CORPUSCULAR HEMOGLOBIN 30 pg (25-35); MEAN CORPUSCULAR HGB CONC 35 g/dL (31-37); MEAN CORPUSCULAR VOLUME 85 fL (79-100); MONO # 0.5 x10^3/uL (0.0-1.1); MONO % 8 % (0-9); NEUT # 2.3 x10^3/uL (1.8-7.7); NEUT % 41 % (31-73); PLATELET COUNT 211 x10^3/uL (140-400); RED BLOOD COUNT 5.11 x10^6/uL (4.30-5.70); RED CELL DISTRIBUTION WIDTH 13.4 % (11.5-14.5); WHITE BLOOD COUNT 5.7 x10^3/uL (4.0-11.0)
[2021-05-05 02:26] LABS: CALCIUM 8.8 mg/dL (8.5-10.1); CREATININE 0.9 mg/dL (0.7-1.3); GFR 89.3; POTASSIUM 3.6 mmol/L (3.5-5.1)
[2021-05-05 02:33] LABS: ALBUMIN 3.5 g/dL (3.4-5.0); ALBUMIN/GLOBULIN RATIO 0.9 (1.0-1.7); TOTAL BILIRUBIN 0.4 mg/dL (0.2-1.0); TOTAL PROTEIN 7.2 g/dL (6.4-8.2)
[2021-05-05 05:52] VITALS: BP 142/79
--- NOTE | 2021-05-05 06:30 | RAD ---
INDICATION: Reason: chest pain / Spl. Instructions: / History: COMPARISON: August 2020 FINDINGS: Single view of chest obtained. Cardiac silhouette is similar to prior. Mild interstitial prominence bilaterally. No gross osseous destructive lesion. IMPRESSION: * Mild interstitial prominence bilaterally which can be seen with mild pulmonary vascular congestion or mild interstitial infiltrate. Electronically signed by: Gaetano De MD (05/05/2021 6:28 AM) [id number]
== END 2021-05-05 06:15 | disposition home or self-care (01) ==
LOC: ER 01:03
DX: R07.89 Other chest pain (principal); R11.2 Nausea with vomiting, unspecified; R06.02 Shortness of breath; K21.9 Gastro-esophageal reflux disease without esophagitis; Z87.891 Personal history of nicotine dependence
CPT/HCPCS: 36415; 71045; 80053; 84484; 85025; 93005; 99285-25

== ENCOUNTER 2021-12-14 17:22 | Emergency (ER) | payer SELFPAY ==
[~2021-12-14] VITALS: Ht 167.6 cm; Wt 70.9 kg
[~2021-12-14 17:22] MED LIST changes: -DOXY100C2 PO; +DOXY100C3 PO
[2021-12-14] MEDS ORDERED: METOCLOPRAMIDE HCL 10 MG/2 ML VIAL. IVP ONE (18:15)
[2021-12-14] MEDS ORDERED: IV NORMAL SALINE 1000ML BAG 1,000 ML IV ONE (18:15)
[2021-12-14] MEDS ORDERED: diphenhydrAMINE 50 MG/ML VIAL IVP ONE (18:15)
--- NOTE | 2021-12-14 18:26 | RAD ---
Exam Date: 12/14/2021 6:[address] HEAD/BRAIN WO Indication: Reason: Thunderclap onset headache / Spl. Instructions: / History: . TECHNIQUE: Head CT was performed without intravenous contrast. One or more of the following dose re duction techniques were utilized: *Automated exposure control (AEC) *Adjustment of mA and/or kV according to patient size *Use of iterative reconstruction technique *CT scan done according to ALARA, or ALARA/IMAGE GENTLY COMPARISON: August 31, 2020 FINDINGS: The ventricles and sulci are normal for the patient's stated age. There is no evidence of acute int racranial hemorrhage, extra-axial collection, mass effect, midline shift, or acute territorial infarc t. No lesion of the skull base or the calvarium is seen. The visualized paranasal sinuses, mastoid ai r cells and orbits are normal in appearance. IMPRESSION: No evidence for acute intracranial abnormality. Electronically signed by: Abdulaziz Donaldson MD (12/14/2021 6:23 PM) [facility]
[2021-12-14 18:59] LABS: BASO # 0.2 x10^3/uL (0.0-0.2); BASO % 2 % (0-3); EOS # 0.4 x10^3/uL (0.0-0.7); EOS % 6 % (0-3); HEMATOCRIT 43.7 % (39.0-53.0); HEMOGLOBIN 14.9 g/dL (13.0-17.5); LYMPH # 2.2 x10^3/uL (1.0-4.8); LYMPH % 34 % (24-48); MEAN CORPUSCULAR HEMOGLOBIN 29 pg (25-35); MEAN CORPUSCULAR HGB CONC 34 g/dL (31-37); MEAN CORPUSCULAR VOLUME 84 fL (79-100); MONO # 0.7 x10^3/uL (0.0-1.1); MONO % 11 % (0-9); NEUT # 3.1 x10^3/uL (1.8-7.7); NEUT % 47 % (31-73); PLATELET COUNT 245 x10^3/uL (140-400); RED CELL DISTRIBUTION WIDTH 13.1 % (11.5-14.5); WHITE BLOOD COUNT 6.6 x10^3/uL (4.0-11.0)
[2021-12-14] MEDS ORDERED: KETOROLAC 30 MG/ML VIAL. IVP ONE (19:00)
[2021-12-14 19:29] LABS: CALCIUM 8.2 mg/dL (8.5-10.1); CREATININE 0.8 mg/dL (0.7-1.3); GFR 101.9; POTASSIUM 3.8 mmol/L (3.5-5.1)
--- NOTE | 2021-12-14 20:08 | PHYS DOC ---
Past Medical History Past Medical History: No Pertinent History, GERD (NYDIA FREITAS APRN) Past Surgical History: No Surgical History (NYDIA FREITAS APRN) Smoking Status: Current Every Day Smoker Alcohol Use: Occasionally Drug Use: None (NYDIA FREITAS APRN) General Adult EDM: Chief Complaint: HEADACHE HPI: HPI: Patient is a 51-year-old male presents to the emergency department complaining of a sudden onset of frontal headache that started 3 days ago. Patient describes the onset as a thunderclap onset. States he has been taking Excedrin for his headache pains and has brought his headache down to a 6 or 7 out of 10 from a 10 out of 10 pain. Patient states that headache does not seem to go away. Patient reports history of migraines in the past however is usually able to control his headache pain with [id number] Excedrin. Patient denies head injury, denies photophobia, denies neck stiffness or neck pain, denies visual disturbances, dizziness, syncopal or near syncopal episodes. Patient denies chest pains, recent fever or chills. Denies recent illnesses. Patient denies other physical complaints or physical concerns. (NYDIA FREITAS APRN) Review of Systems: Review of Systems: 14 body systems of review of systems have been reviewed. See HPI for pertinent positives and negative responses, otherwise all other systems are negative, nonpertinent or noncontributory. Constitutional: Negative except as outlined in HPI above. Skin: Negative except as outlined in HPI above. Eyes: Negative except as outlined in HPI above. HENT: Negative except as outlined in HPI above. Respiratory: Negative except as outlined in HPI above. Cardiovascular: Negative except as outlined in HPI above. GI: Negative except as outlined in HPI above. : Negative except as outlined in HPI above. Musculoskeletal: Negative except as outlined in HPI above. Integument: Negative except as outlined in HPI above. Neurologic: Negative except as outlined in HPI above. Endocrine: Negative except as outlined in HPI above. Lymphatic: Negative except as outlined in HPI above. Psychiatric: Negative except as outlined in HPI above. (NYDIA FREITAS APRN) Heart Score: C/O Chest Pain: No Risk Factors: Risk Factors: DM, Current or recent (<one month) smoker, HTN, HLP, family history of CAD, obesity. Risk Scores: Score 0 - 3: 2.5% MACE over next 6 weeks - Discharge Home Score 4 - 6: 20.3% MACE over next 6 weeks - Admit for Clinical Observation Score 7 - 10: 72.7% MACE over next 6 weeks - Early Invasive Strategies (NYDIA FREITAS APRN) Current Medications: Current Medications Medications (Trade) Dose Ordered Sig/Antonio Start Time Stop Time Status Last Admin Dose Admin Diphenhydramine HCl (Benadryl) 25 mg 1X ONCE 12/14/21 18:15 12/14/21 18:16 DC 12/14/21 18:45 25 MG Ketorolac Tromethamine (Toradol 30mg Vial) 30 mg 1X ONCE 12/14/21 19:00 12/14/21 19:06 DC 12/14/21 19:26 30 MG Metoclopramide HCl (Reglan Vial) 10 mg 1X ONCE 12/14/21 18:15 12/14/21 18:16 DC 12/14/21 18:45 10 MG Sodium Chloride 1,000 ml @ 1,000 mls/hr 1X ONCE 12/14/21 18:15 12/14/21 19:14 DC 12/14/21 18:15 1,000 MLS/HR (NYDIA FREITAS APRN) Allergies: Allergies: Allergies Coded Allergies Type Severity Reaction Last Updated Verified No Known Drug Allergies 05/18/15 No (NYDIA FREITAS APRN) Physical Exam: PE: Constitutional: Well developed, well nourished, no acute distress, non-toxic appearance. 51-year-old male in no apparent distress. HENT: Normocephalic, atraumatic. Bilateral TMs intact and within normal limits, no lymphadenopathy of the head and neck appreciated, oropharynx moist, pink, no deep tissue infectious process appreciated. Eyes: Conjunctiva normal, no discharge. No photophobia, PERRLA. Neck: Normal range of motion, no stridor. No nuchal rigidity, no C-spine pain. No meningismus signs. Cardiovascular: No cyanosis appreciated, distal cap refill less than 2 seconds. Lungs & Thorax: Patient is in no respiratory distress, no audible adventitious lung sounds appreciated. Abdomen: Nontender, no abnormalities noted. Skin: Warm, dry, no erythema, no rash. Back: No tenderness, no deformities. Extremities: No tenderness, no cyanosis, no clubbing, ROM intact, no edema. Neurologic: Alert and oriented X 3, normal motor function, normal sensory function, no focal deficits noted. Psychologic: Affect normal, judgement normal, mood normal. (NYDIA FREITAS APRN) Current Patient Data: Labs: Laboratory Tests Test 12/14/21 18:40 White Blood Count 6.6 x10^3/uL (4.0-11.0) Red Blood Count 5.20 x10^6/uL (4.30-5.70) Hemoglobin 14.9 g/dL (13.0-17.5) Hematocrit 43.7 % (39.0-53.0) Mean Corpuscular Volume 84 fL (79-100) Mean Corpuscular Hemoglobin 29 pg (25-35) Mean Corpuscular Hemoglobin Concent 34 g/dL (31-37) Red Cell Distribution Width 13.1 % (11.5-14.5) Platelet Count 245 x10^3/uL (140-400) Neutrophils (%) (Auto) 47 % (31-73) Lymphocytes (%) (Auto) 34 % (24-48) Monocytes (%) (Auto) 11 % (0-9) H Eosinophils (%) (Auto) 6 % (0-3) H Basophils (%) (Auto) 2 % (0-3) Neutrophils # (Auto) 3.1 x10^3/uL (1.8-7.7) Lymphocytes # (Auto) 2.2 x10^3/uL (1.0-4.8) Monocytes # (Auto) 0.7 x10^3/uL (0.0-1.1) Eosinophils # (Auto) 0.4 x10^3/uL (0.0-0.7) Basophils # (Auto) 0.2 x10^3/uL (0.0-0.2) Sodium Level 139 mmol/L (136-145) Potassium Level 3.8 mmol/L (3.5-5.1) Chloride Level 103 mmol/L (98-107) Carbon Dioxide Level 23 mmol/L (21-32) Anion Gap 13 (6-14) Blood Urea Nitrogen 17 mg/dL (8-26) Creatinine 0.8 mg/dL (0.7-1.3) Estimated GFR (Cockcroft-Gault) 101.9 Glucose Level 134 mg/dL (70-99) H Calcium Level 8.2 mg/dL (8.5-10.1) L Laboratory Tests 12/14/21 18:40 Laboratory Tests 12/14/21 18:40 Vital Signs: Vital Signs Date Time Temp Pulse Resp B/P (MAP) Pulse Ox O2 Delivery O2 Flow Rate FiO2 12/14/21 17:41 97.5 89 20 132/83 (99) 98 Room Air 97.5 (NYDIA FREITAS APRN) EKG: EKG: [] (NYDIA FREITAS APRN) Radiology/Procedures: Radiology/Procedures: STATUS: REG ER ORD. PHYSICIAN: NYDIA FREITAS APRN REASON: Thunderclap onset headache PROCEDURE: CT HEAD WO CONTRAST Exam Date: 12/14/2021 6:[address] HEAD/BRAIN WO Indication: Reason: Thunderclap onset headache / Spl. Instructions: / History: . TECHNIQUE: Head CT was performed without intravenous contrast. One or more of the following dose reduction techniques were utilized: *Automated exposure control (AEC) *Adjustment of mA and/or kV according to patient size *Use of iterative reconstruction technique *CT scan done according to ALARA, or ALARA/IMAGE GENTLY COMPARISON: August 31, 2020 FINDINGS: The ventricles and sulci are normal for the patient's stated age. There is no evidence of acute intracranial hemorrhage, extra-axial collection, mass effect, midline shift, or acute territorial infarct. No lesion of the skull base or the calvarium is seen. The visualized paranasal sinuses, mastoid air cells and orbits are normal in appearance. IMPRESSION: No evidence for acute intracranial abnormality. Electronically signed by: Abdulaziz Donaldson MD (12/14/2021 6:23 PM) [facility] (NYDIA FREITAS APRN) Course & Med Decision Making: Course & Med Decision Making Pertinent Labs and Imaging studies reviewed. (See chart for details) 51-year-old male, vital signs reviewed, presents emergency department concerning headache for the past 3 days unrelieved with Excedrin. With patient's description of thunderclap onset, will order CT head without contrast, headache cocktail to include IV saline lock, normal saline, IV Benadryl, IV Reglan, pending negative head CT for acute bleed will give IV Toradol. CT head negative for acute process, IV Toradol ordered. After period of time, patient reports he is pain-free, denies any symptoms at this time, discussed with patient will discharge to home, strict follow-up with primary care for ongoing headache pain management, return to ER precautions and concerns were reviewed, patient gave verbal understanding of and is amenable to ED discharge planning. (NYDIA FREITAS APRN) Corby Disclaimer: Corby Disclaimer: This electronic medical record was generated, in whole or in part, using a voice recognition dictation system. (NYDIA FREITAS APRN) Departure Departure Impression: Primary Impression: Headache Qualified Codes: R51.9 - Headache, unspecified Disposition: HOME / SELF CARE / HOMELESS Condition: GOOD Referrals: NO PCP (PCP) Patient Instructions: General Headache Without Cause Additional Instructions: You are seen today for headache that lasted 3 days, because you described this as [address] of your head was performed, the results were reassuring and that there were no acute findings or concerning findings that would warrant admission to the hospital. You are given a headache cocktail of 1 L normal saline, 10 mg IV Reglan, 25 mg IV Benadryl, and 30 mg IV Toradol for your headache pains which you have reported your headache has resolved. Please follow-up with your primary doctor for ongoing headache pains, return to the emergency department for worsening symptoms or other concerns. Thank you for visiting our Emergency Department. It was a pleasure taking care of you today in the emergency department and we appreciate you trusting us with your care. If any additional problems come up don't hesitate to return to visit us. Please follow up with your primary care provider so they can plan additional care if needed and know about the problem that you had. If symptoms worsen come back to the Emergency Department. Any concerning symptoms that start such as chest pain, shortness of air, weakness or numbness on one side of the body, running high fevers or any other concerning symptoms return to the ER. Attending Signature Attending Signature I have reviewed the PA/ELECTRIC POWERLINE EXAMINER's note and plan of care. I was available for consultation as needed during the patient's visit in the emergency department. I agree with the clinical impression, plan, and disposition. (NYDIA HEART DO) NYDIA FREITAS APRN Dec 14, 2021 20:08 NYDIA HEART DO Dec 15, 2021 09:18
[2021-12-14 20:19] VITALS: BP 129/72
== END 2021-12-14 20:48 | disposition home or self-care (01) ==
LOC: ER 17:22
DX: G43.909 Migraine, unspecified, not intractable, without status migrainosus (principal); K21.9 Gastro-esophageal reflux disease without esophagitis; F17.200 Nicotine dependence, unspecified, uncomplicated
CPT/HCPCS: 36415; 70450; 80048; 85025; 96361; 96374; 96375; 99284; J1200; J1885; J2765; J7030